=== PATIENT | male | born 1960 | race Caucasian/White ===

== ENCOUNTER 2023-01-28 09:32 | Outpatient (CLI) | payer OTHER, SELFPAY ==
--- NOTE | ~2023-01-28 | MR_ITS ---
EXAMINATION: MR ankle LT wo/w con DATE: 01/28/2023 10:35 INDICATION: Superficial surgical incisional site infection TECHNIQUE: Magnetic resonance imaging (MRI) of the left ankle was performed without intravenous contr ast. Sequences included sagittal, coronal, and axial T1-weighted FSE and T2-weighted FS FSE, axial T1 -weighted FS FSE and postcontrast axial, sagittal and coronal T1-weighted FS FSE. COMPARISON: None. FINDINGS: Medial ankle ligaments: Deep deltoid ligament and the spring ligament complex are normal. There is mild thickening of the sup erficial deltoid ligament consistent with likely scarring related to chronic sprain.. Lateral ankle ligaments: The anterior and posterior inferior tibiofibular ligaments are normal. The anterior talofibular, calc aneofibular and posterior talofibular ligaments are normal. Tendons: There is prominent fusiform thickening of the Achilles tendon centered roughly 6 cm proximal to the c alcaneal insertion. There is heterogeneous increased T2 signal occupying approximately half of the cr oss-sectional area of the tendon. The increased T2 signals interspersed with multiple small foci of a bsent T1 and T2 signal which could represent either foci of gas or susceptibility artifact related to a reported prior surgery. Additional foci of susceptibility artifact are also seen more cephalad rigo ng the distal muscle belly and myotendinous junction. There is peripheral enhancement surrounding wha t appears to be more discrete fluid collection within the right side of the tendon extending for appr oximately 4 cm proximal to distal length between 3-subcentimeter proximal to the calcaneal insertion. The fluid collection measures up to 1.8 x 1.0 cm in maximal transaxial dimensions. The cephalad julia in fluid collection there appears be a draining sinus tract extending to the posterior margin of the tendon to the level of the skin surface. Appearance suggests severe tendinosis and likely recurrent p artial tear of a previously repaired tear. Correlate with surgical history. The complex fluid collect ion raises suspicion for abscess but differential including on septic hematoma/seroma. The peroneus longus and brevis tendons are normal. The tibialis anterior and extensor hallucis longus and extensor digitorum longus tendons are normal. The tibialis posterior, flexor digitorum longus an d flexor hallucis longus tendons are normal. Plantar fascia: Small plantar calcaneal spur and mild enthesopathy at the calcaneal origin of the central component o f the plantar aponeurosis. No surrounding edema or enhancement to suggest acute plantar fasciitis. Bones/other: Bone alignment is normal. No fracture or pathologic marrow replacing process. 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 Prominent intraosseous g anglion cyst in the calcaneus underlying the angle of [place]. Fluid: Physiologic amount fluid in the joint spaces. Likely reactive mild subcutaneous edema and non masslik e enhancement surrounding the distal Achilles tendon. No other discrete fluid collections identified. IMPRESSION: 1. Small peripherally enhancing fluid collection with numerous foci of susceptibility artifact within the thickened and disorganized appearing Achilles tendon. Appearance suggests at least partial recur rence of likely repaired prior tear. The fluid collection which appears to drain towards the skin valerie face is concerning for abscess with differential including an aseptic hematoma. Reviewed, dictated and finalized at location A.
== END 2023-01-28 09:33 | disposition home or self-care (01) ==
DX: T81.41XA Infection following a procedure, superficial incisional surgical site, initial encounter (principal); Z98.890 Other specified postprocedural states
CPT/HCPCS: 73723; A9577